=== PATIENT | male | born 1940 | race Caucasian/White ===

== ENCOUNTER 2018-09-30 09:28 | Observation (INO) | payer MEDICARE, BC ==
[2018-09-30 11:02] VITALS: BMI 29.3
[2018-09-30 11:41] LABS: #Eosinphils 0.2 thou/uL (0.0-0.7); #Lymphocytes 1.6 thou/uL (1.20-3.40); #Monocytes 0.5 thou/uL (0.11-0.59); #Neutrophils 2.8 thou/uL (1.40-6.50); %Basophils 0.3 % (0.0-1.0); %Eosinophils 4.2 % (0.0-10.0); %Lymphocytes 31.4 % (21.0-51.0); %Monocytes 8.7 % (0.0-10.0); %Neutrophils 55.4 % (42.0-75.0); Hemoglobin 12.8 g/dL (14.0-18.0); Mean Corpuscular HGB CONC 34.5 g/dL (32.0-36.0); Mean Corpuscular Hemoglobin 33.7 pg (27.0-31.0); Mean Corpuscular Volume 97.6 fL (78.0-98.0); Platelet Count 179 thou/uL (130-400); RBC Distribution Width 12.1 % (11.5-14.5); Red Blood Cell (RBC) Count 3.81 mill/uL (4.70-6.10); White Blood Cell (WBC) Count 5.1 thou/uL (4.8-10.8)
--- NOTE | 2018-09-30 11:50 | RAD ---
EXAM: Chest Two Views 09/30/2018 11:47 AM HISTORY: Unstable angina COMPARISON: Chest radiograph dated May 30, 2015 FINDINGS: Heart: Normal in size and contour. Pulmonary vessels: Normal. Costophrenic angles: Clear. Lungs: No confluent pneumonia, overt edema, pleural effusion, or other acute process. Pneumothorax: None. Osseous structures:There is scattered degenerative and osteoarthritic change present. There is mild t horacolumbar scoliosis. There is diffuse osteopenia. Additional findings: None. IMPRESSION: No significant acute intrathoracic disease.
[2018-09-30] MEDS ORDERED: Nitroglycerin 0.4 MG TAB (25 Tab Bottle) SL PRN (12:02)
[2018-09-30 12:03] LABS: Bilirubin Negative (Negative); Blood, Urine Negative (Negative); Clarity CLEAR (Clear); Glucose, Urine (Dipstick) Negative (Negative); Leukocyte Negative (Negative); Nitrite Negative (Negative); Protein, Urine (Dipstick) Negative (Neg-Trace); Specific Gravity, Urine 1.006 (1.002-1.036); Urobilinogen 0.2 mg/dL (0.2-1.0)
[2018-09-30 12:14] LABS: ALT (SGPT) 16 U/L (8-55); AST (SGOT) 19 U/L (5-34); Albumin 3.8 g/dL (3.4-4.8); Alkaline Phosphatase 77 U/L (40-150); Anion Gap 8 mmol/L (10-20); BUN (Urea Nitrogen) 12 mg/dL (8.4-25.7); Bilirubin, Total 0.7 mg/dL (0.2-1.2); Calc. Creatinine Clearance 89 mL/min (70-130); Calcium 9.2 mg/dL (7.8-10.44); Carbon Dioxide 27 mmol/L (23-31); Chloride 108 mmol/L (98-107); Estimated GFR-MDRD 69; Globulin 2.4 g/dL (2.4-3.5); Glucose 114 mg/dL (83-110); Potassium 4.9 mmol/L (3.5-5.1); Protein, Total 6.2 g/dL (5.8-8.1); Sodium 138 mmol/L (136-145)
[2018-09-30 15:17] LABS: Troponin I Less than 0.010 ng/mL (< 0.028)
--- NOTE | 2018-09-30 17:37 | EKG ---
Test Reason : Blood Pressure : / mmHG Vent. Rate : 053 BPM Atrial Rate : 053 BPM P-R Int : 188 ms QRS Dur : 082 ms QT Int : 418 ms P-R-T Axes : 014 002 024 degrees QTc Int : 392 ms Sinus bradycardia Low voltage QRS Cannot rule out Anterior infarct , age undetermined Abnormal ECG When compared with ECG of 19-OCT-2016 17:15, No significant change was found Confirmed by PAULIE ISAACS, SCarrie ([id number]) on 09/30/2018 5:37:16 PM Referred By: Sheila JOHNSON Confirmed By:DR. Martina APODACA MD
[2018-09-30 18:58] LABS: Troponin I Less than 0.010 ng/mL (< 0.028)
--- NOTE | 2018-09-30 19:31 | CON ---
DATE OF CONSULTATION: REASON FOR CONSULTATION: Chest pain. HISTORY OF PRESENT ILLNESS: Mr. Alfonso is a very pleasant 77-year-old gentleman seen and evaluated in the past. Mr. Alfonso was last seen in the office in November of 2016. He has a previous history of CAD and treated medically. Mr. Alfonso underwent coronary angiography in 2007 Dr. Reed Santillan. At that point, his LVEF was 30% to 35% with hypokinesis along the mid apical anterior wall and anteroseptal wall. His left main was normal. His LAD is 100% occluded and was treated medically. Circumflex artery had mild to moderate disease as well as right coronary artery. He also underwent coronary angiography in August of 2013, where he was found to have similar findings. He states he began having mainly left arm pain and shoulder pain. He states this is similar to his previous infarction. He then proceeded to the emergency room. PAST MEDICAL HISTORY: As described above including hyperlipidemia, hypertension, and previous ID in 2004. ALLERGIES: NONE. HOME MEDICATIONS: Losartan, Pepcid, loratadine, Celebrex, Plavix, carvedilol, Zocor, and aspirin. REVIEW OF SYSTEMS: A 10-point review of systems is reviewed as above, otherwise negative. PHYSICAL EXAMINATION: GENERAL: Thre patient is a pleasant 77-year-old gentleman, who is in no acute distress. The patient appears their stated age. VITAL SIGNS: Blood pressure 142/68, pulse 58, temperature 97.8. NEUROLOGIC: The patient is alert and oriented x3 with no focal neurologic deficits. HEENT: Sclerae without icterus. Mouth has moist mucous membranes with normal pallor. NECK: No JVD. Carotid upstroke brisk. No bruits bilaterally. LUNGS: Clear to auscultation with unlabored respirations. BACK: No scoliosis or kyphosis. CARDIAC: Regular rate and rhythm with normal S1 and S2. No S3 or S4 noted. No significant rubs, murmurs, thrills, or gallops noted throughout the precordium. PMI is not displaced. There is no parasternal heave. ABDOMEN: Soft, nontender, nondistended. No peritoneal signs present. No hepatosplenomegaly. No abnormal striae. EXTREMITIES: 2+ femoral and 2+ dorsalis pedis pulses. No cyanosis, clubbing, or edema. SKIN: No gross abnormalities. LABORATORY DATA: CK and troponin negative. Previous stress study dated 12/11/2016, with LVEF 58% and a moderate-sized scar along the anterior inferior wall. IMPRESSION: 1. Atypical chest pain. 2. Coronary artery disease. 3. Previous occluded LAD. RECOMMENDATIONS: Mr. Alfonso underwent the first part of a noninvasive stress study today. His symptoms are atypical. We will defer any further recommendations based on the findings on his stress test. Job ID: [id number]
[2018-09-30] MEDS ORDERED: CeleCOXIB 100 MG CAP PO SCH (21:00)
[2018-09-30] MEDS ORDERED: Atorvastatin Calcium 20 MG TAB PO SCH (21:00)
[2018-09-30] MEDS: Carvedilol 6.25 MG TAB PO SCH (21:04)
--- NOTE | 2018-10-01 01:39 | HP ---
CHIEF COMPLAINT: Unstable angina. 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 It was quite intense, causing him to stop from what he was doing. It made him short winded. He relates that when he had this happen in the past, he was told he had suffered an acute IN and he admits this pain is very similar to when he had his previous heart attack. He denies nausea, vomiting, or diaphoresis. He has been taking his blood pressure medicine. His other risk factors include having had a prior IN and hyperlipidemia. PAST MEDICAL HISTORY: Significant for the aforementioned previous acute IN anteriorly, coronary artery disease, hypertension, hyperlipidemia, degenerative joint disease, anxiety disorder, severe presbycusis (refuses to wear hearing aids), and is medically noncompliant. PAST SURGICAL HISTORY: Hernia repair and cardiac catheterization. His angioplasty was in 2007 and his acute IN was in 2009. 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 He extends his hours way past exhaustion. He does not smoke or drink alcoholic beverages. He never has used illicit drugs. ALLERGIES: HE HAS NO KNOWN DRUG ALLERGIES. MEDICATIONS ON ADMISSION: 1. Coreg 6.25 mg b.i.d. 2. Lipitor 20 mg p.o. q.h.s. 3. Plavix 75 mg daily. 4. Olmesartan 40 mg daily. REVIEW OF SYSTEMS: GENERAL: At the time of admission, he denies fever, chills, or malaise. HEENT: Denies any drainage or sores from ears, nose, or throat. CHEST: Denies any coughing. He is short of breath when he has his episode of pain across the shoulders. CARDIOVASCULAR: No palpitations, but his current pain across the shoulders reminds him of his previous IN. ABDOMEN: Negative for nausea, vomiting, or diarrhea. : Negative for blood in urine or stool or dysuria. MUSCULOSKELETAL: He has occasional arthritic complaints in major joints, but no other specific problems. SKIN: No new rashes or lesions. NEUROLOGIC: No trouble with mentation, hypesthesia, or anesthesia. PSYCHIATRIC: No trouble with depression, anxiety, or hallucinations. PHYSICAL EXAMINATION: VITAL SIGNS: At the time of admission; blood pressure 145/68, pulse 61, respirations 18, temperature 98.2. He is 95% on room air. He weighs 228 pounds. GENERAL: This is a well-developed, well-nourished, elderly, hard of hearing male. HEENT: Normocephalic and atraumatic. Pupils are equal, round, and reactive to light with diminished reactivity at 1 to 2 mm. Arcus senilis bilaterally. TMs, nares, and pharynx are clear. NECK: Supple. Trachea midline. No bruits bilaterally. No mass. CHEST: Clear to auscultation. HEART: Regular rate and rhythm without murmur. ABDOMEN: Soft and nontender without hepatosplenomegaly. : Deferred. EXTREMITIES: Without clubbing, cyanosis, or edema. SKIN: Without acute rashes or lesions. NEUROLOGIC: Cranial nerves are intact. Gait and cerebellar function intact. Sensory exam is grossly intact. Mental status is baseline. LABORATORY DATA: Lab work thus far shows WBCs 5.1, hemoglobin 12.8, hematocrit 37.6 with platelets of 179. Sodium 138, potassium 4.9, chloride 108, CO2 of 27, BUN 12, creatinine 1.0, and glucose 114. Liver functions unremarkable. Troponins x2 so far negative. UA is unremarkable. IMAGING STUDIES: EKG shows no change from previous old EKG with possible old anterior infarction. Echocardiogram is pending as his nuclear medicine stress test. ASSESSMENT: 1. Unstable angina in a medically noncompliant patient. 2. History of coronary artery disease and previous myocardial infarction. 3. Hypertension. 4. Hyperlipidemia. PLAN: Echocardiogram, nuclear medicine stress test. Cardiology consultation and serial re-evaluation. Job ID: [id number]
--- NOTE | 2018-10-01 06:24 | PDOC.CTH ---
Cardiology Progress Note - Objective Vital Signs Temp Pulse Resp BP Pulse Ox 10/01/18 04:46 97.7 F 54 L 18 124/60 94 L 10/01/18 00:08 98.4 F 61 20 135/67 93 L 09/30/18 19:50 97.8 F 59 L 20 160/74 H 95 Weight 226 lb 1.6 oz 09/29/18 09/30/18 10/01/18 06:59 06:59 06:59 Intake Total 1230 Balance 1230 - Physical Examination General/Neuro: alert & oriented x3, NAD Neck: carotid US brisk, no JVD present Lungs: unlabored respirations Heart: PMI normal, RRR Abdomen: no HSM, NT/ND Extremities: + femoral B - Telemetry Telemetry Rhythm: sr - Labs Result Diagrams: 09/30/18 11:35 09/30/18 11:35 Troponin/CKMB Troponin I Less than 0.010 ng/mL (< 0.028) 09/30/18 18:27 - Assessment/Plan atypical CP CAD Occluded LAD Await results of CL Previous study with scar to inferior, anterior wall
[2018-10-01 07:18] LABS: Cardiac Risk 2.6 (Less than 4.5)
[2018-10-01] MEDS ORDERED: Ramipril 5 MG CAP PO SCH (09:00)
[2018-10-01] MEDS ORDERED: Aspirin Chewable 81 MG TAB PO SCH (09:00)
[2018-10-01] MEDS ORDERED: Clopidogrel Bisulfate 75 MG TAB PO SCH (09:00)
[2018-10-01] MEDS: Carvedilol 6.25 MG TAB PO SCH (10:53)
--- NOTE | 2018-10-01 10:56 | NM ---
NM Cardiac Stress W EF WF History: [Angina] Comparison: Nuclear medicine cardiac stress test 2014 Findings: Stress and rest performed after the intravenous ministration of 32.9 and 32 mCi technetium 99m sestamibi, respectively. There is a large apical and inferior wall scar. No evidence of periinfarct ischemia. There is dyskinesia of the apex. Calculated ejection fraction is 63%. Impression: 1. Large apical scar without francesca-infarct ischemia. 2. Dyskinesia of the left ventricular apex.
[2018-10-01] MEDS ORDERED: ADENOSINE 60 MG/20 ML VIAL ONE (14:31)
[2018-10-01 15:34] VITALS: BP 140/63; TEMP 98.3
== END 2018-10-01 16:43 | disposition home or self-care (01) ==
LOC: 3SE 10:45 → 2SW 10:51
PROVIDERS: ADMIT Specialist; ATTEND Specialist
DX: I25.110 Atherosclerotic heart disease of native coronary artery with unstable angina pectoris (principal); I10 Essential (primary) hypertension; E78.5 Hyperlipidemia, unspecified; I25.2 Old myocardial infarction; M19.90 Unspecified osteoarthritis, unspecified site; F41.9 Anxiety disorder, unspecified; Z79.82 Long term (current) use of aspirin; Z79.01 Long term (current) use of anticoagulants; Z79.1 Long term (current) use of non-steroidal anti-inflammatories (NSAID); Z79.899 Other long term (current) drug therapy
CPT/HCPCS: 71046; 78452; 80053; 80061; 81003; 84484 ×2; 85025; 93005; 93017; 93306; A9500; G0378; G0379; 36415; 93010; J0153

== ENCOUNTER 2024-03-24 09:33 | Outpatient (CLI) | payer MEDICARE | END 2024-03-24 09:34 | disposition home or self-care (01) | LOC: BICMAMMO 09:33 | PROVIDERS: ATTEND Specialist | DX: N63.42 Unspecified lump in left breast, subareolar (principal) | CPT/HCPCS: 76642; 77066; G0279 ==